=== PATIENT | female | born 1965 | race African-American/Black ===

== ENCOUNTER 2017-05-11 15:42 | Emergency (ER) | payer OTHER ==
[~2017-05-11] VITALS: Ht 167.6 cm; Wt 69.0 kg
[~2017-05-11 15:42] MED LIST: CIPROFLOXACN500 MG PO; LEVAQUIN750 MG PO; LISINOPRIL20 MG PO; MAXZIDE-25MG1 COMBO PO; NO MEDS; TAM75CAP PO; TESSALON PER100 MG PO; ULTRAM50 M1 PO
[2017-05-11] MEDS ORDERED: ISENTRESS400 MG PO (15:59)
[2017-05-11] MEDS ORDERED: TRUVADA PO (16:00)
[2017-05-11] MEDS ORDERED: METHIMAZOLE10 MG PO (16:01)
[2017-05-11] MEDS ORDERED: ATENOLOL25 MG PO (16:01)
[2017-05-11] MEDS ORDERED: AMOXICILLIN500 MG PO (17:26)
[2017-05-11 17:45] VITALS: BP 140/77
== END 2017-05-11 17:45 | disposition home or self-care (01) | DRG 156 ==
LOC: ED 15:42
DX: H61.21 Impacted cerumen, right ear (principal); H66.91 Otitis media, unspecified, right ear; H92.01 Otalgia, right ear

== ENCOUNTER 2019-02-06 00:30 | Emergency (ER) | payer MEDICAID ==
[~2019-02-06] VITALS: Ht 167.6 cm; Wt 97.2 kg
[~2019-02-06 00:30] MED LIST changes: +AMOXICILLIN500 MG PO; +ATENOLOL25 MG PO; +ISENTRESS400 MG PO; +METHIMAZOLE10 MG PO; +TRUVADA PO
[2019-02-06] MEDS ORDERED: XANAX0.5 MG PO ×2 (01:21→01:22)
[2019-02-06 01:30] VITALS: BP 140/82
== END 2019-02-06 01:30 | disposition home or self-care (01) ==
LOC: ED 00:30
DX: F43.20 Adjustment disorder, unspecified (principal); F17.210 Nicotine dependence, cigarettes, uncomplicated
CPT/HCPCS: J2060